=== PATIENT | male | born 1950 | race Caucasian/White ===

== ENCOUNTER → 2021-02-01 10:23 | Outpatient (CLI) | payer MEDICARE, SELFPAY | PROVIDERS: Visit Provider Surgery | DX: Z01.812 Encounter for preprocedural laboratory examination (principal); Z11.52 Encounter for screening for COVID-19; Z12.11 Encounter for screening for malignant neoplasm of colon | CPT/HCPCS: C9803; U0003; U0005 ==

== ENCOUNTER 2021-02-03 09:18 | Day surgery (SDC) | payer MEDICARE, SELFPAY ==
[2021-01-29 13:10] VITALS: BMI 31.1
[2021-02-03 09:39] VITALS: BP 169/80; PULSE 79; RESP 18; TEMP 36.7; O2SAT 95
--- NOTE | 2021-02-03 09:40 | P.PN_ITS ---
[facility] Anesthesia Checklist - Patient Identification Patient Identification: Arm Band - Structural Data Admitted From: Home Planned Operative Procedure/s: Colonoscopy Consent for Planned Operative Procedure(s) Verified: Yes - NPO Status Verified Time NPO: 04:30 (Black coffee) - Airway Assessment C-Spine Mobility Assessed: Yes TMJ Mobility Assessed: Yes Dentition: Good Dentition - Neurological Assessment Level of Consciousness: Awake Hx Seizures: No Numbness or tingling in extremities: No - Anesthesia Plan Anesthesia Risk discussed: Yes Anesthesia Plan: Verified ASA Class: II Anesthesia Type: MAC [facility] History I have reviewed the patient's past medical history: Yes Medical History: Reports:: Cancer (skin) Denies:: Diabetes Mellitus Type 1, Diabetes Mellitus Type 2, Internal Pacemaker, MRSA *Have you ever received a pneumonia vaccine?: Yes *Have you received a flu vaccine this season?: No Anesthesia experience/problems:: None Other Surgeries: No: Pacemaker Amputation: No Fractures: No - *Social History Last grade of school completed: High school graduate Smoking Status: Never smoker Alcohol Intake: current Alcohol Intake Frequency:: a few times a week Substance Use Type: denies use *Occupational Status:: retired Housing: house Household Members: spouse *Travel in the last 8 weeks: None Family Hx:: No significant family history
[2021-02-03 09:58] VITALS: O2SAT 97
[2021-02-03 10:35] VITALS: BP 104/55; PULSE 69; RESP 14; TEMP 36.6; O2SAT 92
--- NOTE | 2021-02-03 10:36 | P.PCN_ITS ---
- Procedure: Date: 02/03/21 Patient Date of :: 1950 Procedure Performed:: Colonoscopy with polypectomy using snare and biopsy forceps Indications:: Patient is a 70-year-old male from [place]. He presents for colonoscopy. He had apparent 2 prior colonoscopies. Most recent colonoscopy was 2-1/2 years ago. These have been done in [facility]. He states that he was told he needed a 2-year follow-up colonoscopy. The exact details of the previous colonoscopy are unclear. He has been asymptomatic. No family history of colon cancer. Performing Provider:: Mario Washburn MD Referring Provider:: Jordon Cruz Sedation:: MAC sedation Procedure:: Patient was taken to endoscopy procedure room. He was positioned in lateral decubitus position. Adequate intravenous sedation was achieved with anesthesia titration of propofol. Variable stiffness Olympus colonoscope was inserted via the anus. It was advanced to the cecum. Colonic preparation was good and visualization was good. Ileocecal valve and appendiceal orifice were clearly identified. Colonoscope was slowly withdrawn through the colon with careful surveillance. In the ascending colon distal to the ileocecal valve there was a moderate somewhat irregular ridge polyp. This was removed in a piecemeal fashion using cold snare with potential residual polyp removed with biopsy forceps. He had some degree of mild pandiverticulosis with quite significant diverticulosis of the sigmoid colon. In the sigmoid colon there was a small possibly adenomatous polyp removed with biopsy forceps. In the rectosigmoid region there was a tiny hyperplastic appearing polyp removed with biopsy forceps. Retroflexion was performed within the rectum which revealed no evidence of any pathologic internal hemorrhoids. Colonoscope was withdrawn. Findings:: Moderate ridge polyp in the ascending colon Some degree of pandiverticulosis with significant diverticulosis of the sigmoid colon Diminutive sigmoid polyp Hyperplastic appearing rectosigmoid polyp Recommendations:: I will see if I can obtain his prior pathology report from colonoscopy and foll ow-up colonoscopy will be pending this as well as pathology of current polyps Complications:: None immediately apparent Estimated blood obtained (mL): 2
[2021-02-03 10:45] VITALS: BP 129/84; PULSE 73; RESP 16; O2SAT 93
[2021-02-03 10:55] VITALS: BP 126/85; PULSE 77; RESP 16; O2SAT 93
[2021-02-03 11:10] VITALS: BP 136/82; PULSE 74; RESP 16; O2SAT 98
== END 2021-02-03 11:10 | disposition home or self-care (01) ==
LOC: OUTP 09:22
PROVIDERS: PCP Family Medicine; Visit Provider Surgery
PROC: 0DJD8ZZ Inspection of Lower Intestinal Tract, Via Natural or Artificial Opening Endoscopic (ICD-10-PCS; principal; 2021-02-03 10:30)
DX: D12.2 Benign neoplasm of ascending colon (principal); D12.5 Benign neoplasm of sigmoid colon; K57.32 Diverticulitis of large intestine without perforation or abscess without bleeding; Z85.828 Personal history of other malignant neoplasm of skin; Z79.899 Other long term (current) drug therapy; Z12.11 Encounter for screening for malignant neoplasm of colon
CPT/HCPCS: 45380; 45385; 88305; J2704

== ENCOUNTER 2025-02-07 06:11 | Day surgery (SDC) | payer MEDICARE, SELFPAY ==
[2025-02-05 15:16] VITALS: BMI 31.1
--- NOTE | 2025-02-07 06:12 | EXP.GEN.HP ---
HPI HPI HPI: Patient is a 74-year-old male from [place] with history of polyps who presents for follow-up colonoscopy. He has had 3 prior colonoscopies apparently, the first 2 of which were in [facility]. I did ultimately obtain outside facility records and colonoscopy performed at [place] on 09/17/2018 revealed numerous polyps ranging in size between 3 and 11 mm with multiple tubular adenomas and multiple sigmoid tubulovillous adenoma. I had performed a colonoscopy on 02/03/2021. He had some degree of pandiverticulosis. Several polyps were removed including a ascending colon ridge polyp which revealed fragmented tubular adenoma, sigmoid polyp was a benign mucosal polyp, rectosigmoid was hyperplastic polyp. I recommended repeat colonoscopy within 3 years after his colonoscopy done on 02/03/2021, 4 years ago, due to his history of numerous complex adenomatous polyps, including tubulovillous adenoma. . [facility] Disclaimer: The information contained in this section may have been updated after the patient was seen, as this information can be updated by other users. Medical History (Updated 02/07/25 @ 07:50 by Mario Washburn MD) Hyperlipidemia Diabetes mellitus, type 2 Hypertension History of colon polyps Surgical History Hx of colonoscopy with polypectomy Family History Other No significant family history Social History Smoking Status: Former smoker second hand exposure: No alcohol intake: current alcohol intake frequency: a few times a week substance use type: denies use current occupational status: retired Travel in the last 8 weeks?: None household members: spouse housing: house current occupational exposures/hazards: No caffeine: Yes Have you lived/traveled outside US in past 30 days?: No Contact w/someone who lives/traveled outside US past 30 days?: No Exposure to someone with infectious disease in past 14 days?: No Do you have a fever (greater than 100.4 F or 38 C)?: No Have you tested positive for COVID-19?: No Exposed to someone with COVID-19 in past 14 days?: No Do you have a sore throat?: No Do you have a cough?: No Do you have any weakness?: No Are you experiencing any nausea/vomitting?: No Do you have any diarrhea?: No Are you experiencing any unusual bleeding?: No Do you have any muscle aches/pain?: No Do you have any abdominal pain?: No Are you experiencing loss of taste or smell?: No Other Medical History Have you received the Flu Vaccine for this season: No Have you received the Pneumonia Vaccine: Yes Meds Home Medications and Allergies Home Medications ?Medication ?Instructions ?Recorded ?Confirmed ?Type atorvastatin 10 mg tablet 10 mg PO HS Cholesterol 01/29/21 02/07/25 History terazosin 10 mg capsule 10 mg PO DAILY bp 01/29/21 02/07/25 History glipizide 2.5 mg tablet 2.5 mg PO BID 02/05/25 02/07/25 History metformin 750 mg tablet 750 mg PO BID 02/05/25 02/07/25 History New Prescriptions to Start Prescriptions: Allergies Allergy/AdvReac Type Severity Reaction Status Date / Time No Known Allergies Allergy Verified 02/07/25 06:43 Exam Data for Last 24 hours I & O for Last 24 hours: Intake & Output 02/04/25 02/05/25 02/06/25 02/07/25 11:59 11:59 11:59 11:59 Weight 230 lb Constitutional Constitutional: no acute distress *Routine HEENT Exam Head: Present normocephalic Eye: Present EOMI and PERRL ENT: Present mucous membranes moist *Routine Neck Exam Neck: Present supple; Absent lymphadenopathy *Routine Respiratory Exam Respiratory: Present CTA bilaterally *Routine Cardiovascular Exam Cardiovascular: Present RRR *Routine Abdominal Exam Abdominal: Present soft and normoactive bowel sounds; Absent tenderness *Routine Rectal Exam Rectal:: deferred *Routine Genitalia Exam Genitalia:: deferred *Routine Extremities Exam Extremities: Absent cyanosis, clubbing or edema *Routine Skin Exam Skin: Present warm; Absent rash *Routine Neurological Exam Neurological: Present alert and oriented X3 Assessment and Plan *Assessment and plan (1) Tubular adenoma of colon: Status: Acute Category: Medical Code(s): D12.6 - Benign neoplasm of colon, unspecified Plan Colonoscopy
[2025-02-07 06:44] VITALS: BP 152/76; PULSE 92; RESP 18; TEMP 36.4; O2SAT 95
[2025-02-07] MEDS: LACTATED RINGERS 1000ML 1,000 ML 50 ML IV (06:54)
--- NOTE | 2025-02-07 07:32 | EXP.ANES.CKL ---
[facility] Disclaimer: The information contained in this section may have been updated after the patient was seen, as this information can be updated by other users. Medical History Hyperlipidemia Diabetes mellitus, type 2 Hypertension History of colon polyps Surgical History Hx of colonoscopy with polypectomy Family History Other No significant family history Social History Smoking Status: Former smoker second hand exposure: No alcohol intake: current alcohol intake frequency: a few times a week substance use type: denies use current occupational status: retired Travel in the last 8 weeks?: None household members: spouse housing: house current occupational exposures/hazards: No caffeine: Yes Have you lived/traveled outside US in past 30 days?: No Contact w/someone who lives/traveled outside US past 30 days?: No Exposure to someone with infectious disease in past 14 days?: No Do you have a fever (greater than 100.4 F or 38 C)?: No Have you tested positive for COVID-19?: No Exposed to someone with COVID-19 in past 14 days?: No Do you have a sore throat?: No Do you have a cough?: No Do you have any weakness?: No Are you experiencing any nausea/vomitting?: No Do you have any diarrhea?: No Are you experiencing any unusual bleeding?: No Do you have any muscle aches/pain?: No Do you have any abdominal pain?: No Are you experiencing loss of taste or smell?: No [facility] [place] Anesthesia Checklist Patient Identification Patient Identification: Arm Band Structural Data Admitted From: Home Planned Operative Procedure/s: Colonoscopy Consent for Planned Operative Procedure(s) Verified: Yes Verified Documents: Surgical Consent and History and Physical NPO Status Verified Time NPO: 00:00 Additional verifications Anesthesia Reactions: No Airway Assessment Mallampati Score:: Class II C-Spine Mobility Assessed: Yes TMJ Mobility Assessed: Yes Dentition: Good Dentition Neurological Assessment Level of Consciousness: Awake, Alert and Appropriate Anesthesia Plan Anesthesia Risk discussed: Yes Anesthesia Plan: Verified ASA Class: II Anesthesia Type: MAC
[2025-02-07 07:51] VITALS: BP 99/62; PULSE 62; RESP 18; TEMP 36.3; O2SAT 93
--- NOTE | 2025-02-07 07:51 | HMH.SCOPE ---
Procedure: Date: 02/07/25 Patient Date of :: 1950 Procedure Performed:: Total colonoscopy to terminal ileum with polypectomy using snare Indications:: Patient is a 74-year-old male from [place] with history of polyps who presents for follow-up colonoscopy. He has had 3 prior colonoscopies apparently, the first 2 of which were in [facility]. I did ultimately obtain outside facility records and colonoscopy performed at [place] on 09/17/2018 revealed numerous polyps ranging in size between 3 and 11 mm with multiple tubular adenomas and multiple sigmoid tubulovillous adenoma. I had performed a colonoscopy on 02/03/2021. He had some degree of pandiverticulosis. Several polyps were removed including a ascending colon ridge polyp which revealed fragmented tubular adenoma, sigmoid polyp was a benign mucosal polyp, rectosigmoid was hyperplastic polyp. I recommended repeat colonoscopy within 3 years after his colonoscopy done on 02/03/2021, 4 years ago, due to his history of numerous complex adenomatous polyps, including tubulovillous adenoma. . Performing Provider:: Mario Washburn MD Referring Provider:: Jordon Cruz MD Sedation:: MAC sedation Procedure:: Patient history was obtained and appropriate physical examination was performed. Patient's medications and allergies were reviewed. Informed consent was obtained after explaining the benefits, alternatives, and risks of the procedure including, but not limited to, bleeding, perforation, missed lesions, and adverse reaction to anesthesia medications. Patient was transported to endoscopy procedure room. Patient was connected to monitoring devices. Throughout the procedure the patient's blood pressure, pulse, and oxygen saturations were monitored continuously. Patient identification and planned procedure were verified by the staff. Patient was positioned in lateral decubitus position. Digital anorectal exam was performed. Variable stiffness Olympus colonoscope was inserted and advanced under direct visualization to the cecum. Adequacy of the colonic preparation was noted. The colonoscope was advanced a short distance into the terminal ileum. The colonoscope was then slowly withdrawn while carefully examining the color, texture, anatomy, and integrity of the mucosoa circumferentially. Within the rectum retroflexion was performed. Colonoscope was then withdrawn. Impression: There was some liquid stool within the colon which was able to be cleared. He had pandiverticulosis with severe sigmoid diverticular disease. In the ascending colon there was a sessile several millimeter adenomatous appearing polyp removed with cold snare with residual tissue removed with biopsy forceps. In the distal transverse colon there was a tiny polyp removed with cold snare. . Findings:: Significant diverticulosis Polyps as noted Recommendations:: Repeat colonoscopy pending pathology, likely 3 to 5 years Complications:: None immediately. Estimated blood obtained (mL): 1 Colonoscopy Component Colonoscopy Component Was a colonoscopy performed during today's procedure?: Yes Recommended follow up colonoscopy of at least 10 years?: No If no, follow up colonoscopy recommended in ___ years?: See above Reason for not recommending >/= 10 yr follow-up interval?: See above
[2025-02-07 08:01] VITALS: BP 104/69; PULSE 76; RESP 18; TEMP 36.3; O2SAT 95
[2025-02-07 08:11] VITALS: BP 124/68; PULSE 72; RESP 18; TEMP 36.3; O2SAT 95
[2025-02-07 08:21] VITALS: BP 132/72; PULSE 72; RESP 18; TEMP 36.3; O2SAT 95
[2025-02-07 09:28] LABS: POC Glucose,Bedside 152 gm/dL (70-110)
== END 2025-02-07 08:21 | disposition home or self-care (01) ==
PROVIDERS: PCP Family Medicine; Visit Provider Surgery
PROC: 0DJD8ZZ Inspection of Lower Intestinal Tract, Via Natural or Artificial Opening Endoscopic (ICD-10-PCS; CPT 45385; principal; 2025-02-07 07:30)
DX: Z12.11 Encounter for screening for malignant neoplasm of colon (principal); D12.2 Benign neoplasm of ascending colon; K63.5 Polyp of colon; Z86.0101 Personal history of adenomatous and serrated colon polyps; K57.30 Diverticulosis of large intestine without perforation or abscess without bleeding; Z86.0102 Personal history of hyperplastic colon polyps; E78.5 Hyperlipidemia, unspecified; E11.9 Type 2 diabetes mellitus without complications; I10 Essential (primary) hypertension; Z87.891 Personal history of nicotine dependence; Z79.84 Long term (current) use of oral hypoglycemic drugs; Z79.899 Other long term (current) drug therapy
CPT/HCPCS: 45385; 82962; J2003; J2704; J7120